=== PATIENT | female | born 1965 | race American Indian/Alaskan Native ===

== ENCOUNTER 2017-06-23 15:37 | Outpatient (CLI) | payer BC | END 2017-06-23 15:38 | disposition home or self-care (01) | LOC: SPVWC 15:37 | PROVIDERS: ATTEND Obstetrics & Gynecology | DX: Z12.31 Encounter for screening mammogram for malignant neoplasm of breast (principal) | CPT/HCPCS: 77067 ==

== ENCOUNTER 2017-07-07 12:55 | Outpatient (CLI) | payer BC ==
--- NOTE | 2017-07-07 14:14 | Mammography Report ---
LEFT DIGITAL DIAGNOSTIC MAMMOGRAM : 07/07/17 12:55:00 CLINICAL: Recalled for asymmetries. COMPARISON:06/23/17 screening FINDINGS: Additional mammographic views were performed and demonstrate persistent asymmetries. Ultrasound of the left breast (including all four quadrants and the retroareolar area) was performed and demonstrated several benign cysts and no solid mass or shadowing. A cyst at 2 o'clock 4 cm from the nipple measures 3 x 1 x 3 mm. A cyst at 9 o'clock 3 cm from the nipple measures 8 x 5 x 8 mm and correlates with the asymmetry near the nipple on the CC view of the mammogram. A cyst at 10 o'clock 8 cm from the nipple measures 6 x 3 x 6 mm and correlates with an asymmetry on the mammogram. A cluster of cysts at 11 o'clock 9 cm from the nipple measures 6 x 4 x 5 mm and correlates with a mammographic asymmetry on the lateral view. IMPRESSION: Benign cysts and no suspicious finding. BI-RADS CATEGORY: 2 - - Benign RECOMMENDATION: Routine mammographic screening in one year. ACR BI-RADS MAMMOGRAPHIC CODES: 0 = Needs additional imaging evaluation; 1 = Negative; 2 = Benign; 3 = Probably benign; 4 = Suspicious; 5 = Malignant; 6 = Known biopsy-proven malignancy COMMENT: 1. Dense breast tissue, i.e., adenosis, fibrocystic changes, etc., may obscure an underlying neoplasm. 2. Approximately 10% of cancers are not detected with mammography. 3. A negative mammography report should not delay biopsy if a clinically suspicious mass is present. COMMENT: Patient follow-up letters are generated via our [employer] application.
== END 2017-07-07 12:56 | disposition home or self-care (01) ==
LOC: SPVWC 12:55
PROVIDERS: ATTEND Obstetrics & Gynecology
DX: N60.02 Solitary cyst of left breast (principal)

== ENCOUNTER 2018-08-24 15:39 | Outpatient (CLI) | payer BC ==
--- NOTE | 2018-08-24 16:13 | Mammography Report ---
Screening mammogram: Routine views are compared to prior exam in June 2017. There is a heterogeneously dense and symmetrically distributed fibroglandular pattern. In the anterior left breast is a circumscribed nodule. In the superior breast there is a circumscribed faintly dense nodule. These were both present and unchanged from prior exam. A posterior nodule in the left breast seen previously is no longer apparent. The finding is not otherwise remarkable were changed. Ultrasound last year demonstrated multiple cysts with no solid lesions in the left breast. CAD used. Impression: Stable exam. Recommendation: Annual mammogram followup. BI-RADS CATEGORY: 2 = Benign ACR BI-RADS MAMMOGRAPHIC CODES: 0 = Needs additional imaging evaluation; 1 = Negative; 2 = Benign; 3 = Probably benign; 4 = Suspicious; 5 = Malignant; 6 = Known biopsy-proven malignancy COMMENT: 1. Dense breast tissue, i.e., adenosis, fibrocystic changes, etc., may obscure an underlying neoplasm. 2. Approximately 10% of cancers are not detected with mammography. 3. A negative mammography report should not delay biopsy if a clinically suspicious mass is present.
== END 2018-08-24 15:40 | disposition home or self-care (01) ==
LOC: SPVWC 15:39
PROVIDERS: ATTEND Obstetrics & Gynecology
DX: Z12.31 Encounter for screening mammogram for malignant neoplasm of breast (principal)
CPT/HCPCS: 77067

== ENCOUNTER 2019-11-14 13:27 | Outpatient (CLI) | payer BC ==
--- NOTE | 2019-11-16 10:14 | Mammography Report ---
DIGITAL SCREENING MAMMOGRAM WITH CAD, 11/15/2019 INDICATION: Routine screening mammography. TECHNIQUE: Digital bilateral 2D mammography was obtained in the craniocaudal and mediolateral obliq ue projections. This examination was interpreted with the benefit of Computer-Aided Detection analysi s. COMPARISON: 08/24/2018, 07/07/2017, 06/23/2017 FINDINGS: Breast Density: The breasts are heterogeneously dense, which may obscure small masses. There is no evidence of dominant mass, suspicious calcifications or architectural distortion in the r ight breast. And upper outer quadrant left breast nodule seen previously is unchanged. A previously s een retroglandular left breast nodule is not clearly identified on this study. No other significant a bnormality of the left breast. IMPRESSION: Follow up recommendation: Routine yearly BI-RADS Category 2: Benign. A "normal" or negative report should not discourage follow up or biopsy of a clinically significant f inding. A written summary of these findings will be mailed to the patient. The patient will be entered into a mammography reporting system which will generate a reminder letter for the patient's next appointmen t at the appropriate interval. The [employer] recommends yearly mammograms starting at age 40 and continuing as l munir as a woman is in good health. Breast MRI is recommended for women with an approximate 20-25% or greater lifetime risk of breast cancer, including women with a strong family history of breast or ova chandler cancer or who have been treated for Hodgkin's disease. Signer Name: Davin Izquierdo MD Signed: 11/16/2019 10:10 AM Workstation Name: [id number]
== END 2019-11-14 13:28 | disposition home or self-care (01) ==
LOC: SPVWC 13:27
PROVIDERS: ATTEND Obstetrics & Gynecology
DX: Z12.31 Encounter for screening mammogram for malignant neoplasm of breast (principal)
CPT/HCPCS: 77067

== ENCOUNTER 2020-11-19 12:59 | Outpatient (CLI) | payer BC ==
--- NOTE | 2020-11-19 14:04 | Mammography Report ---
DIGITAL SCREENING MAMMOGRAM WITH CAD, 11/19/2020 CLINICAL INFORMATION / INDICATION: Routine screening mammography. SCREENING MAMMO TECHNIQUE: Digital bilateral 2D mammography was obtained in the craniocaudal and mediolateral obliqu e projections. This examination was interpreted with the benefit of Computer-Aided Detection analysis . COMPARISON: 11/14/2019, 08/24/2018. FINDINGS: Breast Density: The breasts are heterogeneously dense, which may obscure small masses. No dominant mass, suspicious calcifications, or architectural distortion in either breast. Benign-appearing left-sided nodule remains. IMPRESSION: No mammographic evidence of malignancy. Follow up recommendation: Routine yearly BI-RADS Category 2: Benign. A "normal" or negative report should not discourage follow up or biopsy of a clinically significant f inding. A written summary of these findings will be mailed to the patient. The patient will be entered into a mammography reporting system which will generate a reminder letter for the patient's next appointmen t at the appropriate interval. The [employer] recommends yearly mammograms starting at age 40 and continuing as l munir as a woman is in good health. Breast MRI is recommended for women with an approximate 20-25% or greater lifetime risk of breast cancer, including women with a strong family history of breast or ova chandler cancer or who have been treated for Hodgkin's disease. Signer Name: Cade Tomlin MD Signed: 11/19/2020 1:59 PM Workstation Name: [id number]
== END 2020-11-19 13:00 | disposition home or self-care (01) ==
LOC: SPVWC 12:59
PROVIDERS: ATTEND Internal Medicine
DX: Z12.31 Encounter for screening mammogram for malignant neoplasm of breast (principal)
CPT/HCPCS: 77067